=== PATIENT | female | born 1935 | race Caucasian/White ===

== ENCOUNTER 2016-12-22 23:45 | Inpatient (IN) | payer MEDICARE, OTHER ==
[~2016-12-22] VITALS: Ht 154.9 cm; Wt 85.0 kg
[2016-12-22] MEDS ORDERED: SOD CHLORIDE 0.9% 1,000 ML IV STA (23:50)
[2016-12-23] MEDS ORDERED: CELE100C PO (01:13)
[2016-12-23] MEDS ORDERED: MIRT15TA PO (01:13)
[2016-12-23] MEDS ORDERED: CALC-686 PO (01:13)
[2016-12-23] MEDS ORDERED: QUET100T PO (01:13)
[2016-12-23] MEDS ORDERED: CHOL200073 PO (01:13)
[2016-12-23] MEDS ORDERED: RIVA10TA PO (01:13)
[2016-12-23] MEDS ORDERED: ESOM40CA PO (01:13)
[2016-12-23 01:14] LABS: ADD SCAN DIFF NO
[2016-12-23 01:24] LABS: BASOPHIL # 0.1 10^3/ul (0.0-0.1); BASOPHILS % 0.4 % (0.0-2.0); EOSINOPHILS # 0.2 10^3/ul (0.0-0.5); EOSINOPHILS % 1.5 % (0.0-7.0); HEMATOCRIT 32.3 % (37.0-47.0); HEMOGLOBIN 9.4 g/dl (12.0-16.0); LYMPHOCYTES # 1.8 10^3/ul (0.8-2.9); LYMPHOCYTES % 14.4 % (15.0-51.0); MEAN CORPUSCULAR HEMOGLOBIN 21.2 pg (29.0-33.0); MEAN CORPUSCULAR HGB CONC 29.1 g/dl (32.0-37.0); MEAN CORPUSCULAR VOLUME 72.7 fl (82.0-101.0); MEAN PLATELET VOLUME 8.9 fl (7.4-10.4); MONOCYTE # 0.6 10^3/ul (0.3-0.9); MONOCYTES % 4.8 % (0.0-11.0); NEUTROPHIL # 9.8 10^3/ul (1.6-7.5); NEUTROPHILS % 78.5 % (39.0-77.0); PLATELET COUNT 454 10^3/UL (140-415); RED BLOOD COUNT 4.44 10^6/ul (4.20-5.40); WHITE BLOOD COUNT 12.5 10^3/ul (4.8-10.8)
[2016-12-23 01:31] LABS: INR 1.29; PROTIME 16.2 Sec (12.2-14.2); PT RATIO 1.3
[2016-12-23 01:32] LABS: PARTIAL THROMBOPLASTIN TIME 36.1 Sec (25.0-35.0)
[2016-12-23 01:34] LABS: ALBUMIN 4.2 g/dl (3.3-4.9); ALBUMIN/GLOBULIN RATIO 1.5; BILIRUBIN,INDIRECT 0.1 mg/dl (0-1.1); BILIRUBIN,TOTAL 0.1 mg/dl (0.2-1.3); CALCIUM 9.4 mg/dl (8.4-10.2); CREATININE 0.89 mg/dl (0.44-1.00); POTASSIUM 3.7 mmol/L (3.5-5.1)
[2016-12-23 02:13] LABS: UR BACTERIA MODERATE /HPF (NONE SEEN); UR RBC > 182 /HPF (0-5)
[2016-12-23 02:27] LABS: ADD UMIC YES; UR ASCORBIC ACID NEGATIVE (NEGATIVE); UR BILIRUBIN (Dip) NEGATIVE (NEGATIVE); UR BLOOD (Dip) 2+ mg/dL (NEGATIVE); UR CLARITY TURBID (CLEAR); UR COLOR RED (YELLOW); UR GLUCOSE (Dip) NEGATIVE (NEGATIVE); UR KETONES (Dip) NEGATIVE (NEGATIVE); UR LEUKOCYTE ESTERASE (Dip) TRACE Leu/ul (NEGATIVE); UR NITRITE (Dip) NEGATIVE (NEGATIVE); UR SPECIFIC GRAVITY (Dip) 1.019 (1.003-1.030); UR TOTAL PROTEIN (Dip) 2+ mg/dl (NEGATIVE); UR UROBILINOGEN (Dip) NEGATIVE (NEGATIVE)
[2016-12-23] MEDS ORDERED: ACETAMINOPHEN 500 MG TAB PO ONE (02:56)
[2016-12-23] MEDS ORDERED: CEFTRIAXONE 1 GM/50 ML (PMX) 50 ML IVPB ONE (03:00)
[2016-12-23 05:00] VITALS: BP 110/76; PULSE 77; RESP 18
[2016-12-23 05:23] VITALS: Ht 154.9 cm; Wt 85.0 kg
[2016-12-23] MEDS ORDERED: BARIUM SULF 2% 450 ML BTL (BERRY SMOOTHIE) PO ONE (05:30)
[2016-12-23] MEDS ORDERED: NACL 0.9% 3 ML SYG IV SCH (05:30)
[2016-12-23] MEDS: SOD CHLORIDE 0.9% 1,000 ML IV SCH ×2 (05:45→19:41)
[2016-12-23] MEDS ORDERED: PANTOPRAZOLE 40 MG INJ IV SCH (06:00)
[2016-12-23 07:30] VITALS: BP 110/77; RESP 16
[2016-12-23] MEDS ORDERED: IODIXANOL LOCM 100 ML BTL ONE (08:41)
[2016-12-23] MEDS ORDERED: SOD CHLORIDE 0.9% 100 ML ONE (08:41)
[2016-12-23 11:08] LABS: THYROID STIMULATING HORMONE 3.77 MIU/L (0.465-4.680)
[2016-12-23] MEDS: CHOLECALCIFEROL 2,000 UNIT CAP PO SCH (11:11)
[2016-12-23] MEDS: QUETIAPINE 100 MG TAB PO SCH ×2 (11:11→21:04)
--- NOTE | 2016-12-23 11:43 | RADRPT ---
PROCEDURE: CT Abdomen and Pelvis with contrast. CLINICAL INDICATION: Vaginal bleeding versus hematuria. TECHNIQUE: CT scan of the abdomen and pelvis with contrast was performed on a multi-detector high- resolution CT scanner. The patient was scanned following the uncomplicated intravenous administrati on of 100 cc of Visipaque 320. Coronal and sagittal reformatted images were obtained from the axial source images. Images were reviewed on a high-resolution PACS workstation. The total exam CTDI equa ls 19.93 mGy and the total exam DLP equals 1165.89 mGy-cm. One or more of the following dose reduction techniques were used: Automated exposure control. Adjustment of the mA and/or kV according to patient size. Use of iterative reconstruction technique. COMPARISON: None. FINDINGS: CT abdomen: The lung bases are remarkable for elevation of the left hemidiaphragm with basilar atelectasis. Ther e is trace left pleural effusion. There is mild right basilar atelectasis. The heart size is mildly large without pericardial thickening or effusion. The liver is normal in size and density without focal mass or intrahepatic biliary dilatation. The spleen is normal in size and homogeneous in density. The stomach is partially collapsed, but is sherry ssly unremarkable. The pancreas as visualized is normal. The gallbladder is absent. There is no e vidence for biliary dilatation. The adrenal glands are symmetric and normal. The kidneys are symme trically unremarkable as well. No renal calculus or obstructive uropathy or mass lesion is seen. The aorta is of normal caliber. Aortic vascular calcifications are present. There is no retroperit rae lymphadenopathy. The kings hepatis region is clear. There is moderate stool throughout the c olon. CT pelvis: The small bowel loops situated within the pelvis are unremarkable. The pelvic organs are normal. T he pelvic sidewalls and inguinal regions are clear. The sigmoid colon and rectum are remarkable for sigmoid diverticulosis. No mass, lymphadenopathy, or free fluid is seen. No acute inflammation is seen. The bladder is normal. The surrounding osseous structures are unremarkable. No osteolytic o r osteoblastic lesion is detected. There is moderate levoconvex scoliosis centered at L2-L3. There is chronic-appearing severe compression fracture of T11. Left hip ORIF changes are present. IMPRESSION: 1. No mass, lymphadenopathy, or focal acute inflammatory process is identified. 2. No urolithiasis. No hydronephrosis. 3. Moderate stool throughout the colon. Correlate with constipation. 4. Moderate hiatal hernia. 5. Bibasilar atelectasis and trace left pleural effusion. 6. Aortoiliac atherosclerosis. RPTAT: BB .Nancy Enrique MD, Date Time Electronically viewed and signed by .Nancy Enrique MD, on 12/23/2016 11:43 .O/
[2016-12-23 13:39] LABS: HEMATOCRIT 27.2 % (37.0-47.0)
[2016-12-23 14:03] VITALS: BP 101/53; RESP 18
[2016-12-23] MEDS: POLYETHYLENE GLYCOL 17 GM PACKET PO SCH (17:30)
--- NOTE | 2016-12-23 18:22 | HP ---
Date/Time of Note Date/Time of Note DATE: 12/23/16 TIME: 17:14 Assessment/Plan VTE Prophylaxis VTE Prophylaxis Intervention: SCD's VTE Contraindication Reason: bleeding Lines/Catheters IV Catheter Type (from Nrs): Peripheral IV Urinary Cath still in place: No Assessment/Plan Assessment/Plan 81 yo F with bloody diapers managed for : Gross Hematuria likely 2/2 UTI on Xarelto but r/o other causes UTI Obesity Chronic dementia Hx of DVT? PLAN: CT abd pelvis / abx / urology consult / cultures LE dopplers to eval DVT Hold Xarelto for now Supportive care Obtain further info from family Serial lab for anemia Further interventions per clinical course. Prophylaxis: PPI / SCds HPI/ROS Admit Date/Time Admit Date/Time Dec 23, 2016 at 03:29 Hx of Present Illness 81-year-old female who is unable to give me any history secondary to chronic dementia as well as language barrier, was brought in by her daughter because of history of blood in her urinary diapers, exact duration unknown. Preliminary workup consistent with his significant urinary tract infection. Patient admitted for treatment as well as further workup as well as possible urology review. ROS unable to obtain PMH/Family/Social Past Medical History * DVT * Obesity * bedridden * dementia Past Surgical History * appendectomy * cholecystectomy * sx L hip * Catract sx Social History Smoking Status: Unknown if ever smoked Exam/Review of Systems Vital Signs Vitals Vital Signs Date Time Temp Pulse Resp B/P Pulse Ox O2 Delivery O2 Flow Rate FiO2 12/23/16 14:03 98.1 89 18 101/53 95 12/23/16 05:00 Room Air Intake and Output 12/22/16 12/22/16 12/23/16 15:00 23:00 07:00 Intake Total 50 ml Balance 50 ml Exam Constitutional: alert, frail, other (obese) Head: normocephalic Eyes: PERRL Neck: supple Respiratory: clear to auscultation Cardiovascular: regular rate and rhythm Gastrointestinal: bowel sounds, non-tender, soft Neurological: lethargic Labs Result Diagram: 12/23/16 1306 12/23/16 0029 Medications Medications Current Medications Sodium Chloride 1,000 ml @ 70 mls/hr [id number] IV Last administered on t 05:45; Admin Dose 70 MLS/HR; Start 12/23/16 at 05:23 Ceftriaxone Sodium (Rocephin) 50 ml @ 100 mls/hr Q24H IVPB ; Start 12/24/16 at 03:00 Cholecalciferol (Vitamin D) 2,000 unit DAILY PO Last administered on 12/23/16 11:11; Admin Dose 2,000 UNIT; Start 12/23/16 at 09:00 Mirtazapine (Remeron) 15 mg HS PO ; Start 12/23/16 at 21:00 Quetiapine Fumarate (Seroquel) 100 mg BID PO Last administered on 12/23/16 11: 11; Admin Dose 100 MG; Start 12/23/16 at 09:[address] abd pelvis pending REECE LI Dec 23, 2016 17:27
[2016-12-23 18:36] LABS: HEMATOCRIT 26.9 % (37.0-47.0); HEMOGLOBIN 7.9 g/dl (12.0-16.0)
--- NOTE | 2016-12-23 19:04 | CONS ---
Date/Time of Note Date/Time of Note DATE: 12/23/16 TIME: 18:49 Assessment/Plan Assessment/Plan Chief Complaint/Hosp Course Gross hematuria most likely secondary to urinary tract infection however possibility of bladder tumor is always be considered I did straight cath on her, collected urine for UA, culture and sensitivity Patient was already started on antibiotic, will continue that Problems: Consultation Date/Type/Reason Admit Date/Time Dec 23, 2016 at 03:29 Date of Consultation: Dec 23, 2016 Type of Consultation: Urology Reason for Consultation Gross hematuria Referring Provider: REECE LI Hx of Present Illness 81-year-old female who lives with her son was brought in by her daughter because of gross hematuria that started yesterday. Patient has been on anticoagulant. Patient herself has dementia and not capable of giving any history. The daughter tells me that she has been bedridden since she had a fracture of her left hip about 3 years and a fracture of her right arm about 5 - 6 months earlier Subjective hx not possible: other (Patient has dementia) Constitutional: disoriented, no complaints Eyes: no complaints, other (History of surgery for left cataract) ENT: no complaints Respiratory: no complaints Cardiovascular: no complaints Gastrointestinal: No nausea, No vomiting Genitourinary: hematuria Musculoskeletal: no complaints Skin: no complaints Neurologic: confusion Endocrine: no complaints Lymphatic: no complaints Psychological: confusion, other (Dementia) Immunologic: no complaints Past Medical History Medical History: deep vein thrombosis (Left lower extremity deep vein thrombosis) Past Surgical History Past Surgical Hx: appendectomy, cholecystectomy, other (Surgery for left hip fracture and right upper extremity fracture, left cataract surgery) Social History Has 4 children, her daughter does not know if she had any miscarriages or abortions Alcohol Use: none Smoking Status: Unknown if ever smoked Drug Use: none Exam/Review of Systems Vital Signs Vitals Vital Signs Date Time Temp Pulse Resp B/P Pulse Ox O2 Delivery O2 Flow Rate FiO2 12/23/16 14:03 98.1 89 18 101/53 95 12/23/16 05:00 Room Air Intake and Output 12/22/16 12/22/16 12/23/16 15:00 23:00 07:00 Intake Total 50 ml Balance 50 ml Exam Constitutional: other (Poor cooperation because of dementia) Psych: confusion Head: normocephalic Eyes: nl conjunctiva ENMT: nl external ears & nose Neck: non-tender, supple Respiratory: normal air movement Cardiovascular: nl pulses Gastrointestinal: non-tender, soft, surgical scars Genitourinary - Female: other (Pelvic exam: no vaginal bleeding, no discharge and no mass palpable) Extremities: other (Swollen right lower extremity) Skin: nl turgor Lymph: nl lymph nodes Results Result Diagram: 12/23/16 1306 12/23/16 0029 Results 24 hrs Laboratory Tests Test 12/23/16 00:29 12/23/16 00:46 12/23/16 05:43 12/23/16 13:06 White Blood Count 12.5 H Red Blood Count 4.44 Hemoglobin 9.4 L 8.0 L Hematocrit 32.3 L 27.2 L Mean Corpuscular Volume 72.7 L Mean Corpuscular Hemoglobin 21.2 L Mean Corpuscular Hemoglobin Concent 29.1 L Red Cell Distribution Width 17.0 H Platelet Count 454 H Mean Platelet Volume 8.9 Neutrophils % 78.5 H Lymphocytes % 14.4 L Monocytes % 4.8 Eosinophils % 1.5 Basophils % 0.4 Nucleated Red Blood Cells % 0.0 Neutrophils # 9.8 H Lymphocytes # 1.8 Monocytes # 0.6 Eosinophils # 0.2 Basophils # 0.1 Nucleated Red Blood Cells # 0.0 Prothrombin Time 16.2 H Prothrombin Time Ratio 1.3 INR International Normalized Ratio 1.29 Activated Partial Thromboplast Time 36.1 H Sodium Level 132 L Potassium Level 3.7 Chloride Level 98 Carbon Dioxide Level 28 Anion Gap 10 Blood Urea Nitrogen 22 H Creatinine 0.89 Glucose Level 134 Calcium Level 9.4 Total Bilirubin 0.1 L Direct Bilirubin 0.00 Indirect Bilirubin 0.1 Aspartate Amino Transf (AST/SGOT) 20 Alanine Aminotransferase (ALT/SGPT) 21 Alkaline Phosphatase 60 Total Protein 7.0 Albumin 4.2 Globulin 2.80 Albumin/Globulin Ratio 1.50 Lipase 101 Urine Color RED Urine Clarity TURBID A Urine pH 5.0 Urine Specific [place] 1.019 Urine Ketones NEGATIVE Urine Nitrite NEGATIVE Urine Bilirubin NEGATIVE Urine Urobilinogen NEGATIVE Urine Leukocyte Esterase TRACE A Urine Microscopic RBC > 182 H Urine Microscopic WBC > 182 H Urine Bacteria MODERATE Urine Hemoglobin 2+ H Urine Glucose NEGATIVE Urine Total Protein 2+ H Osmolality 291 Thyroid Stimulating Hormone (TSH) 3.[address] scan of abdomen and pelvis: 1. No mass, lymphadenopathy, or focal acute inflammatory process is identified. 2. No urolithiasis. No hydronephrosis. 3. Moderate stool throughout the colon. Correlate with constipation. 4. Moderate hiatal hernia. 5. Bibasilar atelectasis and trace left pleural effusion. 6. Aortoiliac atherosclerosis. Medications Medications Current Medications Sodium Chloride 1,000 ml @ 70 mls/hr [id number] IV Last administered on 05:45; Admin Dose 70 MLS/HR; Start 12/23/16 at 05:23 Ceftriaxone Sodium (Rocephin) 50 ml @ 100 mls/hr Q24H IVPB ; Start 12/24/16 at 03:00 Cholecalciferol (Vitamin D) 2,000 unit DAILY PO Last administered on 12/23/16 11:11; Admin Dose 2,000 UNIT; Start 12/23/16 at 09:00 Mirtazapine (Remeron) 15 mg HS PO ; Start 12/23/16 at 21:00 Quetiapine Fumarate (Seroquel) 100 mg BID PO Last administered on 12/23/16 11: 11; Admin Dose 100 MG; Start 12/23/16 at 09:00 Polyethylene Glycol (Miralax) 17 gm DAILY PO ; Start 12/23/16 at 17:30 ARIE PRESLEY MD Dec 23, 2016 18:59
[2016-12-23 19:56] LABS: ADD UMIC YES; UR ASCORBIC ACID NEGATIVE (NEGATIVE); UR BILIRUBIN (Dip) NEGATIVE (NEGATIVE); UR BLOOD (Dip) 3+ mg/dL (NEGATIVE); UR CLARITY CLOUDY (CLEAR); UR COLOR YELLOW (YELLOW); UR GLUCOSE (Dip) NEGATIVE (NEGATIVE); UR KETONES (Dip) NEGATIVE (NEGATIVE); UR LEUKOCYTE ESTERASE (Dip) 3+ Leu/ul (NEGATIVE); UR NITRITE (Dip) NEGATIVE (NEGATIVE); UR RBC > 182 /HPF (0-5); UR SPECIFIC GRAVITY (Dip) 1.051 (1.003-1.030); UR TOTAL PROTEIN (Dip) 2+ mg/dl (NEGATIVE); UR UROBILINOGEN (Dip) 1+ mg/dL (NEGATIVE); UR WBC CLUMPS FEW /HPF (NONE SEEN)
[2016-12-23 20:54] VITALS: BP 110/57; RESP 18
[2016-12-23] MEDS: MIRTAZAPINE 15 MG TAB PO SCH (21:04)
[2016-12-24] MEDS: POTASSIUM CHLORIDE (SR) 8 MEQ CAP PO SCH ×3 (00:35→09:00)
[2016-12-24] MEDS: SOD CHLORIDE 0.9% 1,000 ML IV SCH ×2 (00:36→14:48)
[2016-12-24] MEDS: CEFTRIAXONE 1 GM/50 ML (PMX) 50 ML IVPB SCH (02:09)
[2016-12-24] MEDS ORDERED: FURO-110 PO (02:28)
[2016-12-24] MEDS ORDERED: POTA8CAP PO (02:28)
[2016-12-24 02:51] VITALS: BP 127/62; RESP 18
[2016-12-24] MEDS: PANTOPRAZOLE (EC) 40 MG TAB PO SCH ×2 (08:00→08:53)
[2016-12-24 08:16] VITALS: BP 138/62; RESP 16
[2016-12-24] MEDS: CHOLECALCIFEROL 2,000 UNIT CAP PO SCH (08:53)
[2016-12-24] MEDS: POLYETHYLENE GLYCOL 17 GM PACKET PO SCH ×2 (08:53→09:00)
[2016-12-24] MEDS: QUETIAPINE 100 MG TAB PO SCH ×2 (08:53→21:22)
--- NOTE | 2016-12-24 12:32 | PN ---
Date/Time of Note Date/Time of Note DATE: 12/24/16 TIME: 12:30 Assessment/Plan VTE Prophylaxis VTE Prophylaxis Intervention: contraindicated Lines/Catheters IV [facility]): Peripheral IV Urinary Cath still in place: No Assessment/Plan Chief Complaint/Hosp Course 1. Sepsis secondary to underlying urinary tract infection. Continue antimicrobials. No evidence of septic shock. 2. Gross hematuria. Most probably secondary to underlying UTI. Neurology following the patient. 3. Microcytic, hypochromic anemia. Pending iron panel. Will transfuse as needed. 4. Dementia. Continue frequent reorientation. 5. History of DVT. On a factor Xa inhibitors. This is on hold because of underlying anemia and gross hematuria. Repeat ultrasound of the bilateral lower extremities ordered. However, the patient refusing this. 6. Fluids, electrolytes, and nutrition. Regular diet. 7. DVT prophylaxis. Contraindicated. 8. Gastrointestinal prophylaxis. Proton pump inhibitors. 9. Plan. Continue antimicrobials. Await hematuria to be cleared. Case discussed with . Problems: Subjective 24 Hr Interval Summary Free Text/Dictation Patient very noncooperative. Refusing to be touched. Refusing medications. Exam/Review of Systems Vital Signs Vitals Vital Signs Date Time Temp Pulse Resp B/P Pulse Ox O2 Delivery O2 Flow Rate FiO2 12/24/16 08:16 97.6 72 16 138/62 99 12/23/16 05:00 Room Air Intake and Output 12/23/16 12/23/16 12/24/16 15:00 23:00 07:00 Intake Total 1600 ml 955 ml Balance 1600 ml 955 ml Exam Unable to do physical exam since the patient is refusing. Results Result Diagram: 12/23/16 1821 12/23/16 0029 Results 24 hrs Laboratory Tests Test 12/23/16 13:06 12/23/16 18:21 12/23/16 18:40 Hemoglobin 8.0 L 7.9 L Hematocrit 27.2 L 26.9 L Urine Color YELLOW Urine Clarity CLOUDY A Urine pH 6.0 Urine Specific [place] 1.051 H Urine Ketones NEGATIVE Urine Nitrite NEGATIVE Urine Bilirubin NEGATIVE Urine Urobilinogen 1+ H Urine Leukocyte Esterase 3+ H Urine Microscopic RBC > 182 H Urine Microscopic WBC 124 H Urine Hemoglobin 3+ H Urine Glucose NEGATIVE Urine Total Protein 2+ H Medications Medications Current Medications Sodium Chloride 1,000 ml @ 70 mls/hr [id number] IV Last administered on 00:36; Admin Dose 70 MLS/HR; Start 12/23/16 at 05:23 Ceftriaxone Sodium (Rocephin) 50 ml @ 100 mls/hr Q24H IVPB Last administered on 12/24/16 02:09; Admin Dose 100 MLS/HR; Start 12/24/16 at 03:00 Cholecalciferol (Vitamin D) 2,000 unit DAILY PO Last administered on 12/24/16 08:53; Admin Dose 2,000 UNIT; Start 12/23/16 at 09:00 Mirtazapine (Remeron) 15 mg HS PO Last administered on 12/23/16 21:04; Admin Dose 15 MG; Start 12/23/16 at 21:00 Quetiapine Fumarate (Seroquel) 100 mg BID PO Last administered on 12/24/16 08: 53; Admin Dose 100 MG; Start 12/23/16 at 09:00 Polyethylene Glycol (Miralax) 17 gm DAILY PO ; Start 12/23/16 at 17:30 Potassium Chloride (Micro-K) 8 meq DAILY PO Last administered on 12/24/16 00: 35; Admin Dose 8 MEQ; Start 12/23/16 at 23:00 ARIA VILLAVICENCIO NP Dec 24, 2016 12:31
[2016-12-24 14:33] VITALS: BP 122/66; RESP 16
[2016-12-24 15:08] LABS: ADD SCAN DIFF NO
[2016-12-24 15:11] LABS: ABNORMAL IP MESSAGE 1; BASOPHILS % 0.5 % (0.0-2.0); EOSINOPHILS # 0.3 10^3/ul (0.0-0.5); EOSINOPHILS % 4.8 % (0.0-7.0); HEMATOCRIT 26.3 % (37.0-47.0); HEMOGLOBIN 7.4 g/dl (12.0-16.0); LYMPHOCYTES # 1.5 10^3/ul (0.8-2.9); LYMPHOCYTES % 24.7 % (15.0-51.0); MEAN CORPUSCULAR HEMOGLOBIN 20.4 pg (29.0-33.0); MEAN CORPUSCULAR HGB CONC 28.1 g/dl (32.0-37.0); MEAN CORPUSCULAR VOLUME 72.5 fl (82.0-101.0); MONOCYTE # 0.5 10^3/ul (0.3-0.9); MONOCYTES % 7.6 % (0.0-11.0); NEUTROPHIL # 3.7 10^3/ul (1.6-7.5); NEUTROPHILS % 61.9 % (39.0-77.0); PLATELET COUNT 330 10^3/UL (140-415); RED BLOOD COUNT 3.63 10^6/ul (4.20-5.40); RED CELL DISTRIBUTION WIDTH 17.2 % (11.5-14.5)
[2016-12-24 15:28] LABS: IRON 15 ug/dl (35-150)
[2016-12-24 15:29] LABS: ALBUMIN 3.2 g/dl (3.3-4.9); ALBUMIN/GLOBULIN RATIO 1.33; CALCIUM 8.6 mg/dl (8.4-10.2); CREATININE 0.68 mg/dl (0.44-1.00); POTASSIUM 3.9 mmol/L (3.5-5.1); TOTAL PROTEIN 5.6 g/dl (6.1-8.1)
[2016-12-24 15:39] LABS: TOTAL IRON BINDING CAPACITY 303 ug/dl (241-421)
[2016-12-24] MEDS ORDERED: SOD CHLORIDE 0.9% 250 ML IV* ONE (16:44)
[2016-12-24] MEDS ORDERED: FUROSEMIDE 40 MG INJ IV SCH (17:00)
--- NOTE | 2016-12-24 19:48 | PN ---
Date/Time of Note Date/Time of Note DATE: 12/24/16 TIME: 19:41 Assessment/Plan VTE Prophylaxis VTE Prophylaxis Intervention: SCD's Lines/Catheters IV Catheter Type (from [facility]): Peripheral IV Urinary Cath still in place: No Assessment/Plan Chief Complaint/Hosp Course Gross hematuria most likely secondary to urinary tract infection however possibility of bladder tumor is always to be considered Patient is on antibiotic, will continue that. Urine culture did show 100,000 E. coli sensitive to all antibiotics except ampicillin and Bactrim Problems: Assessment/Plan Gross hematuria secondary to urinary tract infection and that has cleared since he was started on antibiotic Continue the ceftriaxone Subjective 24 Hr Interval Summary Subjective hx not possible: other (Patient has dementia) Constitutional: disoriented Eyes: no complaints ENT: no complaints Respiratory: no complaints Cardiovascular: No chest pain, No edema Gastrointestinal: No nausea, No vomiting Genitourinary: No hematuria Musculoskeletal: no complaints Skin: no complaints Neurologic: no complaints Endocrine: no complaints Lymphatic: no complaints Psychological: confusion, no complaints Immunologic: no complaints Exam/Review of Systems Vital Signs Vitals Vital Signs Date Time Temp Pulse Resp B/P Pulse Ox O2 Delivery O2 Flow Rate FiO2 12/24/16 14:33 97.8 94 16 122/66 94 12/23/16 05:00 Room Air Intake and Output 12/23/16 12/23/16 12/24/16 15:00 23:00 07:00 Intake Total 1600 ml 955 ml Balance 1600 ml 955 ml Exam Constitutional: other (Patient has dementia and not cooperative) Psych: confusion Head: normocephalic Eyes: nl conjunctiva ENMT: nl external ears & nose Neck: supple Respiratory: normal air movement Cardiovascular: regular rate and rhythm Gastrointestinal: non-tender, soft Genitourinary - Female: other (Bladder is not distended) Musculoskeletal: nl extremities to inspection Extremities: No calf tenderness, No edema Skin: nl turgor Lymph: nl lymph nodes Results Result Diagram: 12/24/16 1420 12/24/16 1420 Results 24 hrs Laboratory Tests Test 12/24/16 14:20 White Blood Count 6.0 # Red Blood Count 3.63 L Hemoglobin 7.4 L Hematocrit 26.3 L Mean Corpuscular Volume 72.5 L Mean Corpuscular Hemoglobin 20.4 L Mean Corpuscular Hemoglobin Concent 28.1 L Red Cell Distribution Width 17.2 H Platelet Count 330 # Mean Platelet Volume 9.0 Neutrophils % 61.9 Lymphocytes % 24.7 Monocytes % 7.6 Eosinophils % 4.8 Basophils % 0.5 Nucleated Red Blood Cells % 0.0 Neutrophils # 3.7 Lymphocytes # 1.5 Monocytes # 0.5 Eosinophils # 0.3 Basophils # 0.0 Nucleated Red Blood Cells # 0.0 Sodium Level 138 Potassium Level 3.9 Chloride Level 109 # Carbon Dioxide Level 25 Anion Gap 8 Blood Urea Nitrogen 11 # Creatinine 0.68 Glucose Level 106 Hemoglobin A1c 5.3 Calcium Level 8.6 Iron Level 15 L Total Iron Binding Capacity 303 Percent Iron Saturation 5 L Total Bilirubin 0.0 L Direct Bilirubin 0.00 Indirect Bilirubin 0.0 Aspartate Amino Transf (AST/SGOT) 15 Alanine Aminotransferase (ALT/SGPT) 22 Alkaline Phosphatase 45 Total Protein 5.6 #L Albumin 3.2 #L Globulin 2.40 Albumin/Globulin Ratio 1.33 Medications Medications Current Medications Sodium Chloride 1,000 ml @ 70 mls/hr [id number] IV Last administered on 14:48; Admin Dose 70 MLS/HR; Start 12/23/16 at 05:23 Ceftriaxone Sodium (Rocephin) 50 ml @ 100 mls/hr Q24H IVPB Last administered on 12/24/16 02:09; Admin Dose 100 MLS/HR; Start 12/24/16 at 03:00 Cholecalciferol (Vitamin D) 2,000 unit DAILY PO Last administered on 12/24/16 08:53; Admin Dose 2,000 UNIT; Start 12/23/16 at 09:00 Mirtazapine (Remeron) 15 mg HS PO Last administered on 12/23/16 21:04; Admin Dose 15 MG; Start 12/23/16 at 21:00 Quetiapine Fumarate (Seroquel) 100 mg BID PO Last administered on 12/24/16 08: 53; Admin Dose 100 MG; Start 12/23/16 at 09:00 Polyethylene Glycol (Miralax) 17 gm DAILY PO ; Start 12/23/16 at 17:30 Potassium Chloride (Micro-K) 8 meq DAILY PO Last administered on 12/24/16 00: 35; Admin Dose 8 MEQ; Start 12/23/16 at 23:00 Furosemide (Lasix) 10 mg ONCE IV ; Start 12/24/16 at 17:00; Stop 12/25/16 at 16: 59 ARIE PRESLEY MD Dec 24, 2016 19:48
[2016-12-24] MEDS: MIRTAZAPINE 15 MG TAB PO SCH (20:24)
[2016-12-24 20:34] VITALS: BP 117/61; RESP 19
[2016-12-25 02:54] VITALS: BP 111/63; RESP 19
[2016-12-25] MEDS: CEFTRIAXONE 1 GM/50 ML (PMX) 50 ML IVPB SCH (03:00)
[2016-12-25 08:20] VITALS: BP 113/49; RESP 16
[2016-12-25] MEDS: CHOLECALCIFEROL 2,000 UNIT CAP PO SCH (08:48)
[2016-12-25] MEDS: PANTOPRAZOLE (EC) 40 MG TAB PO SCH (08:48)
[2016-12-25] MEDS: POTASSIUM CHLORIDE (SR) 8 MEQ CAP PO SCH (08:48)
[2016-12-25] MEDS: QUETIAPINE 100 MG TAB PO SCH ×2 (08:49→20:33)
[2016-12-25] MEDS: POLYETHYLENE GLYCOL 17 GM PACKET PO SCH (08:49)
[2016-12-25] MEDS ORDERED: ACETAMINOPHEN 325 MG TAB PO PRN (13:30)
[2016-12-25 14:00] VITALS: BP 118/63; RESP 17
[2016-12-25] MEDS: SOD CHLORIDE 0.9% 1,000 ML IV SCH (14:28)
--- NOTE | 2016-12-25 14:59 | PN ---
Date/Time of Note Date/Time of Note DATE: 12/25/16 TIME: 14:53 Assessment/Plan VTE Prophylaxis VTE Prophylaxis Intervention: SCD's Lines/Catheters IV Catheter Type (from Nrs): Peripheral IV Urinary Cath still in place: No Assessment/Plan Assessment/Plan 1. Urinary tract infection, on Rocephin 2. Sepsis secondary to underlying urinary tract infection. Continue antimicrobials. No evidence of septic shock. 2. Gross hematuria. Most probably secondary to underlying UTI. improving on antibiotics. 3. Microcytic, hypochromic anemia. s/p 1 unit PRBC on 12/25/2016, follow up with CBC 4. Dementia. Continue frequent reorientation. 5. History of DVT. On a factor X inhibitors. This is on hold because of underlying anemia and gross hematuria. Subjective 24 Hr Interval Summary Free Text/Dictation agitated, severely demented Exam/Review of Systems Vital Signs Vitals Vital Signs Date Time Temp Pulse Resp B/P Pulse Ox O2 Delivery O2 Flow Rate FiO2 12/25/16 14:00 97.4 85 17 118/63 97 12/23/16 05:00 Room Air Intake and Output 12/24/16 12/24/16 12/25/16 15:00 23:00 07:00 Intake Total 380 ml 150 ml Balance 380 ml 150 ml Exam Constitutional: alert, distress Head: atraumatic, normocephalic Eyes: EOMI, PERRL, nl conjunctiva, nl lids ENMT: nl external ears & nose, nl lips & teeth, nl nasal mucosa & septum Neck: supple Respiratory: clear to auscultation, normal air movement, No congested cough, No crackles/rales, No diminished breath sounds, No intercostal retraction, No labored breathing, No other, No respirations, No tactile fremitus, No wheezing Cardiovascular: nl pulses, regular rate and rhythm, No S3, No S4, No bruits, No diastolic murmur, No edema, No gallop, No irregular rhythm, No jugular venous distention (JVD), No murmurs/extra sounds, No other, No rub, No systolic murmur Gastrointestinal: nl liver, spleen, non-tender, soft Musculoskeletal: nl extremities to inspection Extremities: normal pulses, No calf tenderness, No clubbing, No cyanosis, No edema, No other, No palpable cord, No pitting pedal edema, No tenderness Neurological: [employer] OVER HAND II-XII intact, confused Skin: nl turgor Lymph: nl lymph nodes Results Result Diagram: 12/24/16 1420 12/24/16 1420 Medications Medications Current Medications Sodium Chloride 1,000 ml @ 70 mls/hr [id number] IV Last administered on 14:28; Admin Dose 70 MLS/HR; Start 12/23/16 at 05:23 Ceftriaxone Sodium (Rocephin) 50 ml @ 100 mls/hr Q24H IVPB Last administered on 12/24/16 02:09; Admin Dose 100 MLS/HR; Start 12/24/16 at 03:00 Cholecalciferol (Vitamin D) 2,000 unit DAILY PO Last administered on 12/25/16 08:48; Admin Dose 2,000 UNIT; Start 12/23/16 at 09:00 Mirtazapine (Remeron) 15 mg HS PO Last administered on 12/24/16 20:24; Admin Dose 15 MG; Start 12/23/16 at 21:00 Quetiapine Fumarate (Seroquel) 100 mg BID PO Last administered on 12/25/16 08: 49; Admin Dose 100 MG; Start 12/23/16 at 09:00 Polyethylene Glycol (Miralax) 17 gm DAILY PO Last administered on 12/25/16 08: 49; Admin Dose 17 GM; Start 12/23/16 at 17:30 Potassium Chloride (Micro-K) 8 meq DAILY PO Last administered on 12/25/16 08: 48; Admin Dose 8 MEQ; Start 12/23/16 at 23:00 Furosemide (Lasix) 10 mg ONCE IV Last administered on 12/25/16 14:28; Admin Dose 10 MG; Start 12/24/16 at 17:00; Stop 12/25/16 at 16:59 Acetaminophen (Tylenol Tab) 650 mg Q4H PRN PO PAIN AND OR ELEVATED TEMP Last administered on 12/25/16 13:43; Admin Dose 650 MG; Start 12/25/16 at 13:30 ALICE WILLIAM MD Dec 25, 2016 14:59
[2016-12-25] MEDS ORDERED: HYDROCODONE/APAP (5/325) TAB GTB PRN (15:00)
[2016-12-25 16:51] LABS: ADD SCAN DIFF NO
[2016-12-25 16:53] LABS: BASOPHILS % 0.3 % (0.0-2.0); EOSINOPHILS # 0.4 10^3/ul (0.0-0.5); EOSINOPHILS % 5.5 % (0.0-7.0); HEMATOCRIT 30.2 % (37.0-47.0); HEMOGLOBIN 9.3 g/dl (12.0-16.0); LYMPHOCYTES # 1.4 10^3/ul (0.8-2.9); LYMPHOCYTES % 21.7 % (15.0-51.0); MEAN CORPUSCULAR HEMOGLOBIN 22.9 pg (29.0-33.0); MEAN CORPUSCULAR HGB CONC 30.8 g/dl (32.0-37.0); MEAN CORPUSCULAR VOLUME 74.2 fl (82.0-101.0); MEAN PLATELET VOLUME 8.8 fl (7.4-10.4); MONOCYTE # 0.4 10^3/ul (0.3-0.9); MONOCYTES % 6.3 % (0.0-11.0); NEUTROPHIL # 4.3 10^3/ul (1.6-7.5); NEUTROPHILS % 65.7 % (39.0-77.0); PLATELET COUNT 345 10^3/UL (140-415); RED BLOOD COUNT 4.07 10^6/ul (4.20-5.40); RED CELL DISTRIBUTION WIDTH 19.5 % (11.5-14.5); WHITE BLOOD COUNT 6.5 10^3/ul (4.8-10.8)
[2016-12-25 17:21] LABS: CHOL/HDL RATIO 5.1 RATIO; PHOSPHORUS 3.5 mg/dl (2.5-4.9)
[2016-12-25 18:05] LABS: THYROID STIMULATING HORMONE 4.17 MIU/L (0.465-4.680)
--- NOTE | 2016-12-25 18:08 | PN ---
Date/Time of Note Date/Time of Note DATE: 12/25/16 TIME: 18:00 Assessment/Plan VTE Prophylaxis VTE Prophylaxis Intervention: SCD's Lines/Catheters IV C[facility] Type ([facility] Peripheral IV Urinary Cath still in place: No Assessment/Plan Chief Complaint/Hosp Course Gross hematuria most likely secondary to urinary tract infection however possibility of bladder tumor is always to be considered Patient is on antibiotic, will continue that. Urine culture did show 100,000 E. coli sensitive to all antibiotics except ampicillin and Bactrim Problems: Assessment/Plan Urinary tract infection and hematuria most likely secondary to the UTI. Continue the antibiotic. Subjective 24 Hr Interval Summary Free Text/Dictation Patient has dementia, does not express any discomfort or pain Constitutional: disoriented, no complaints Eyes: no complaints ENT: no complaints Respiratory: no complaints Cardiovascular: no complaints, No edema Gastrointestinal: no complaints, No nausea, No vomiting Genitourinary: No hematuria Musculoskeletal: no complaints Skin: no complaints Neurologic: confusion, no complaints Endocrine: no complaints Psychological: confusion Immunologic: no complaints Exam/Review of Systems Vital Signs Vitals Vital Signs Date Time Temp Pulse Resp B/P Pulse Ox O2 Delivery O2 Flow Rate FiO2 12/25/16 14:00 97.4 85 17 118/63 97 12/23/16 05:00 Room Air Intake and Output 12/24/16 12/24/16 12/25/16 15:00 23:00 07:00 Intake Total 380 ml 150 ml Balance 380 ml 150 ml Exam Constitutional: other (Awake but confused and disoriented) Psych: confusion Head: atraumatic Eyes: nl conjunctiva ENMT: nl external ears & nose Neck: supple Respiratory: normal air movement Cardiovascular: regular rate and rhythm Gastrointestinal: non-tender, soft Genitourinary - Female: other (No suprapubic tenderness) Musculoskeletal: nl extremities to inspection, other (has SCD on the right lower extremity and not on the left since she has had DVT on the left before) Extremities: No edema, No pitting pedal edema, No tenderness Skin: nl turgor Lymph: nl lymph nodes Results Result Diagram: 12/25/16 1602 12/24/16 1420 Results 24 hrs Laboratory Tests Test 12/25/16 16:02 White Blood Count 6.5 Red Blood Count 4.07 L Hemoglobin 9.3 #L Hematocrit 30.2 L Mean Corpuscular Volume 74.2 L Mean Corpuscular Hemoglobin 22.9 L Mean Corpuscular Hemoglobin Concent 30.8 L Red Cell Distribution Width 19.5 H Platelet Count 345 Mean Platelet Volume 8.8 Neutrophils % 65.7 Lymphocytes % 21.7 Monocytes % 6.3 Eosinophils % 5.5 Basophils % 0.3 Nucleated Red Blood Cells % 0.0 Neutrophils # 4.3 Lymphocytes # 1.4 Monocytes # 0.4 Eosinophils # 0.4 Basophils # 0.0 Nucleated Red Blood Cells # 0.0 Phosphorus Level 3.5 Magnesium Level 2.0 Triglycerides Level 99 Cholesterol Level 159 LDL Cholesterol, Calculated 108 HDL Cholesterol 31 L Cholesterol/HDL Ratio 5.1 Thyroid Stimulating Hormone (TSH) Pending Medications Medications Current Medications Sodium Chloride 1,000 ml @ 70 mls/hr [id number] IV Last administered on 14:28; Admin Dose 70 MLS/HR; Start 12/23/16 at 05:23 Ceftriaxone Sodium (Rocephin) 50 ml @ 100 mls/hr Q24H IVPB Last administered on 12/24/16 02:09; Admin Dose 100 MLS/HR; Start 12/24/16 at 03:00 Cholecalciferol (Vitamin D) 2,000 unit DAILY PO Last administered on 12/25/16 08:48; Admin Dose 2,000 UNIT; Start 12/23/16 at 09:00 Mirtazapine (Remeron) 15 mg HS PO Last administered on 12/24/16 20:24; Admin Dose 15 MG; Start 12/23/16 at 21:00 Quetiapine Fumarate (Seroquel) 100 mg BID PO Last administered on 12/25/16 08: 49; Admin Dose 100 MG; Start 12/23/16 at 09:00 Polyethylene Glycol (Miralax) 17 gm DAILY PO Last administered on 12/25/16 08: 49; Admin Dose 17 GM; Start 12/23/16 at 17:30 Potassium Chloride (Micro-K) 8 meq DAILY PO Last administered on 12/25/16 08: 48; Admin Dose 8 MEQ; Start 12/23/16 at 23:00 Acetaminophen (Tylenol Tab) 650 mg Q4H PRN PO PAIN AND OR ELEVATED TEMP Last administered on 12/25/16 13:43; Admin Dose 650 MG; Start 12/25/16 at 13:30 Acetaminophen/ Hydrocodone Bitart ([place] (5/325)) 1 tab Q4H PRN GTB pain; Start 12/25/16 at 15:00 ARIE PRESLEY MD Dec 25, 2016 18:08
[2016-12-25 18:50] LABS: ALBUMIN 3.1 g/dl (3.3-4.9); ALBUMIN/GLOBULIN RATIO 1.4; BILIRUBIN,INDIRECT 0.2 mg/dl (0-1.1); BILIRUBIN,TOTAL 0.2 mg/dl (0.2-1.3); CREATININE 0.63 mg/dl (0.44-1.00); POTASSIUM 4.4 mmol/L (3.5-5.1); TOTAL PROTEIN 5.3 g/dl (6.1-8.1)
[2016-12-25 20:00] VITALS: BP 133/69; RESP 22
[2016-12-25] MEDS: MIRTAZAPINE 15 MG TAB PO SCH (20:15)
[2016-12-26] MEDS: CEFTRIAXONE 1 GM/50 ML (PMX) 50 ML IVPB SCH (03:07)
[2016-12-26] MEDS: SOD CHLORIDE 0.9% 1,000 ML IV SCH ×3 (06:07→20:32)
[2016-12-26] MEDS: QUETIAPINE 100 MG TAB PO SCH ×2 (08:58→21:11)
[2016-12-26] MEDS: PANTOPRAZOLE (EC) 40 MG TAB PO SCH (08:58)
[2016-12-26] MEDS: POLYETHYLENE GLYCOL 17 GM PACKET PO SCH (08:58)
[2016-12-26] MEDS: CHOLECALCIFEROL 2,000 UNIT CAP PO SCH (08:58)
[2016-12-26] MEDS: POTASSIUM CHLORIDE (SR) 8 MEQ CAP PO SCH (08:58)
[2016-12-26 11:42] LABS: ADD SCAN DIFF NO
[2016-12-26 11:47] LABS: BASOPHILS % 0.4 % (0.0-2.0); EOSINOPHILS # 0.4 10^3/ul (0.0-0.5); EOSINOPHILS % 6.8 % (0.0-7.0); HEMATOCRIT 32.2 % (37.0-47.0); HEMOGLOBIN 9.7 g/dl (12.0-16.0); LYMPHOCYTES # 1.4 10^3/ul (0.8-2.9); LYMPHOCYTES % 24.7 % (15.0-51.0); MEAN CORPUSCULAR HEMOGLOBIN 22.7 pg (29.0-33.0); MEAN CORPUSCULAR HGB CONC 30.1 g/dl (32.0-37.0); MEAN CORPUSCULAR VOLUME 75.2 fl (82.0-101.0); MEAN PLATELET VOLUME 8.5 fl (7.4-10.4); MONOCYTE # 0.4 10^3/ul (0.3-0.9); NEUTROPHIL # 3.4 10^3/ul (1.6-7.5); NEUTROPHILS % 60.6 % (39.0-77.0); PLATELET COUNT 318 10^3/UL (140-415); RED BLOOD COUNT 4.28 10^6/ul (4.20-5.40); RED CELL DISTRIBUTION WIDTH 19.7 % (11.5-14.5); WHITE BLOOD COUNT 5.6 10^3/ul (4.8-10.8)
[2016-12-26 12:15] LABS: CALCIUM 8.9 mg/dl (8.4-10.2); CREATININE 0.68 mg/dl (0.44-1.00); POTASSIUM 4.3 mmol/L (3.5-5.1)
--- NOTE | 2016-12-26 13:30 | PN ---
Date/Time of Note Date/Time of Note DATE: 12/26/16 TIME: 13:28 Assessment/Plan VTE Prophylaxis VTE Prophylaxis Intervention: heparin Lines/Catheters IV Catheter Type (from [facility]): Peripheral IV Urinary Cath still in place: No Assessment/Plan Problems: (1) Organic brain syndrome Status: Chronic Comment: Patient's level of interaction with the outside world has its limitations. Certainly this should be addressed by the durable burns of ribbon cleaner for the patient regarding long-term plans. At this point in time there is no immediacy (2) E. coli UTI (urinary tract infection) Status: Acute Comment: Responding nicely antibiotics discharge planning (3) Iron deficiency anemia Status: Chronic Comment: Replace this parenterally as patient had issues with constipation this will be faster more fish and less likely to cause complications Qualifiers: Iron deficiency anemia type: unspecified iron deficiency Qualified Code: D50.9 - Iron deficiency anemia, unspecified iron deficiency anemia type (4) Obesity (BMI 30-39.9) Status: Chronic Comment: Calorie restriction diet (5) Obstipation Status: Acute Comment: Treated successfully Subjective 24 Hr Interval Summary Free Text/Dictation Patient sleeping in bed arouses. [place] speaking Exam/Review of Systems Vital Signs Vitals Vital Signs Date Time Temp Pulse Resp B/P Pulse Ox O2 Delivery O2 Flow Rate FiO2 12/25/16 20:00 98.9 82 22 133/69 96 12/23/16 05:00 Room Air Intake and Output 12/25/16 12/25/16 12/26/16 15:00 23:00 07:00 Intake Total 830 ml 890 ml Balance 830 ml 890 ml Exam Arousable Neck: non-tender, supple Respiratory: clear to auscultation, normal air movement Cardiovascular: nl pulses, regular rate and rhythm Gastrointestinal: nl liver, spleen, non-tender, soft Extremities: normal pulses Results Result Diagram: 12/26/16 1128 12/26/16 1128 Results 24 hrs Laboratory Tests Test 12/25/16 16:02 12/26/16 05:57 12/26/16 08:06 12/26/16 11:28 White Blood Count 6.5 5.6 Red Blood Count 4.07 L 4.28 Hemoglobin 9.3 #L 9.7 L Hematocrit 30.2 L 32.2 L Mean Corpuscular Volume 74.2 L 75.2 L Mean Corpuscular Hemoglobin 22.9 L 22.7 L Mean Corpuscular Hemoglobin Concent 30.8 L 30.1 L Red Cell Distribution Width 19.5 H 19.7 H Platelet Count 345 318 Mean Platelet Volume 8.8 8.5 Neutrophils % 65.7 60.6 Lymphocytes % 21.7 24.7 Monocytes % 6.3 7.0 Eosinophils % 5.5 6.8 Basophils % 0.3 0.4 Nucleated Red Blood Cells % 0.0 0.0 Neutrophils # 4.3 3.4 Lymphocytes # 1.4 1.4 Monocytes # 0.4 0.4 Eosinophils # 0.4 0.4 Basophils # 0.0 0.0 Nucleated Red Blood Cells # 0.0 0.0 Sodium Level 139 142 Potassium Level 4.4 4.3 Chloride Level 105 107 Carbon Dioxide Level 24 24 Anion Gap 14 15 Blood Urea Nitrogen 12 10 Creatinine 0.63 0.68 Glucose Level 88 90 Calcium Level 9.0 8.9 Phosphorus Level 3.5 Magnesium Level 2.0 Total Bilirubin 0.2 Direct Bilirubin 0.00 Indirect Bilirubin 0.2 Aspartate Amino Transf (AST/SGOT) 19 Alanine Aminotransferase (ALT/SGPT) 23 Alkaline Phosphatase 50 Total Protein 5.3 L Albumin 3.1 L Globulin 2.20 Albumin/Globulin Ratio 1.40 Triglycerides Level 99 Cholesterol Level 159 LDL Cholesterol, Calculated 108 HDL Cholesterol 31 L Cholesterol/HDL Ratio 5.1 Thyroid Stimulating Hormone (TSH) 4.170 Free Thyroxine 1.00 Lab Scanned Report BLOOD TRANSFUSION Bedside Glucose 75 Medications Medications Current Medications Sodium Chloride 1,000 ml @ 70 mls/hr [id number] IV Last administered on 06:07; Admin Dose 70 MLS/HR; Start 12/23/16 at 05:23 Ceftriaxone Sodium (Rocephin) 50 ml @ 100 mls/hr Q24H IVPB Last administered on 12/26/16 03:07; Admin Dose 100 MLS/HR; Start 12/24/16 at 03:00 Cholecalciferol (Vitamin D) 2,000 unit DAILY PO Last administered on 12/26/16 08:58; Admin Dose 2,000 UNIT; Start 12/23/16 at 09:00 Mirtazapine (Remeron) 15 mg HS PO Last administered on 12/25/16 20:15; Admin Dose 15 MG; Start 12/23/16 at 21:00 Quetiapine Fumarate (Seroquel) 100 mg BID PO Last administered on 12/26/16 08: 58; Admin Dose 100 MG; Start 12/23/16 at 09:00 Polyethylene Glycol (Miralax) 17 gm DAILY PO Last administered on 12/26/16 08: 58; Admin Dose 17 GM; Start 12/23/16 at 17:30 Potassium Chloride (Micro-K) 8 meq DAILY PO Last administered on 12/26/16 08: 58; Admin Dose 8 MEQ; Start 12/23/16 at 23:00 Acetaminophen (Tylenol Tab) 650 mg Q4H PRN PO PAIN AND OR ELEVATED TEMP Last administered on 12/25/16 13:43; Admin Dose 650 MG; Start 12/25/16 at 13:30 Acetaminophen/ Hydrocodone Bitart ([place] (5/325)) 1 tab Q4H PRN GTB pain Last administered on 12/25/16 21:18; Admin Dose 1 TAB; Start 12/25/16 at 15:00 TAMIKO CLEARY MD Dec 26, 2016 13:30
--- NOTE | 2016-12-26 15:24 | PN ---
Date/Time of Note Date/Time of Note DATE: 12/26/16 TIME: 15:19 Assessment/Plan VTE Prophylaxis VTE Prophylaxis Intervention: SCD's Lines/Catheters [facility] Type ([facility] Peripheral IV Urinary Cath still in place: No Assessment/Plan Chief Complaint/Hosp Course Gross hematuria that has cleared, patient had E. coli urinary tract infection and seems to be responding well to the antibiotic. Continue present treatment Problems: Subjective 24 Hr Interval Summary Subjective hx not possible: other (Patient has dementia) Constitutional: No febrile Eyes: no complaints ENT: no complaints Respiratory: no complaints Cardiovascular: No edema Gastrointestinal: No nausea, No vomiting Genitourinary: No bleeding Musculoskeletal: no complaints Skin: no complaints Neurologic: confusion Psychological: confusion Exam/Review of Systems Vital Signs Vitals Vital Signs Date Time Temp Pulse Resp B/P Pulse Ox O2 Delivery O2 Flow Rate FiO2 12/25/16 20:00 98.9 82 22 133/69 96 12/23/16 05:00 Room Air Intake and Output 12/25/16 12/25/16 12/26/16 15:00 23:00 07:00 Intake Total 830 ml 890 ml Balance 830 ml 890 ml Exam Psych: confusion Head: normocephalic Eyes: nl conjunctiva ENMT: nl external ears & nose Neck: supple Respiratory: normal air movement Cardiovascular: No edema Gastrointestinal: soft Genitourinary - Female: other (No hematuria) Musculoskeletal: nl extremities to inspection Extremities: No calf tenderness, No edema Skin: nl turgor Results Result Diagram: 12/26/16 1128 12/26/16 1128 Results 24 hrs Laboratory Tests Test 12/25/16 16:02 12/26/16 05:57 12/26/16 08:06 12/26/16 11:28 White Blood Count 6.5 5.6 Red Blood Count 4.07 L 4.28 Hemoglobin 9.3 #L 9.7 L Hematocrit 30.2 L 32.2 L Mean Corpuscular Volume 74.2 L 75.2 L Mean Corpuscular Hemoglobin 22.9 L 22.7 L Mean Corpuscular Hemoglobin Concent 30.8 L 30.1 L Red Cell Distribution Width 19.5 H 19.7 H Platelet Count 345 318 Mean Platelet Volume 8.8 8.5 Neutrophils % 65.7 60.6 Lymphocytes % 21.7 24.7 Monocytes % 6.3 7.0 Eosinophils % 5.5 6.8 Basophils % 0.3 0.4 Nucleated Red Blood Cells % 0.0 0.0 Neutrophils # 4.3 3.4 Lymphocytes # 1.4 1.4 Monocytes # 0.4 0.4 Eosinophils # 0.4 0.4 Basophils # 0.0 0.0 Nucleated Red Blood Cells # 0.0 0.0 Sodium Level 139 142 Potassium Level 4.4 4.3 Chloride Level 105 107 Carbon Dioxide Level 24 24 Anion Gap 14 15 Blood Urea Nitrogen 12 10 Creatinine 0.63 0.68 Glucose Level 88 90 Calcium Level 9.0 8.9 Phosphorus Level 3.5 Magnesium Level 2.0 Total Bilirubin 0.2 Direct Bilirubin 0.00 Indirect Bilirubin 0.2 Aspartate Amino Transf (AST/SGOT) 19 Alanine Aminotransferase (ALT/SGPT) 23 Alkaline Phosphatase 50 Total Protein 5.3 L Albumin 3.1 L Globulin 2.20 Albumin/Globulin Ratio 1.40 Triglycerides Level 99 Cholesterol Level 159 LDL Cholesterol, Calculated 108 HDL Cholesterol 31 L Cholesterol/HDL Ratio 5.1 Thyroid Stimulating Hormone (TSH) 4.170 Free Thyroxine 1.00 Lab Scanned Report BLOOD TRANSFUSION Bedside Glucose 75 Medications Medications Current Medications Sodium Chloride 1,000 ml @ 70 mls/hr [id number] IV Last administered on 06:07; Admin Dose 70 MLS/HR; Start 12/23/16 at 05:23 Ceftriaxone Sodium (Rocephin) 50 ml @ 100 mls/hr Q24H IVPB Last administered on 12/26/16 03:07; Admin Dose 100 MLS/HR; Start 12/24/16 at 03:00 Cholecalciferol (Vitamin D) 2,000 unit DAILY PO Last administered on 12/26/16 08:58; Admin Dose 2,000 UNIT; Start 12/23/16 at 09:00 Mirtazapine (Remeron) 15 mg HS PO Last administered on 12/25/16 20:15; Admin Dose 15 MG; Start 12/23/16 at 21:00 Quetiapine Fumarate (Seroquel) 100 mg BID PO Last administered on 12/26/16 08: 58; Admin Dose 100 MG; Start 12/23/16 at 09:00 Polyethylene Glycol (Miralax) 17 gm DAILY PO Last administered on 12/26/16 08: 58; Admin Dose 17 GM; Start 12/23/16 at 17:30 Potassium Chloride (Micro-K) 8 meq DAILY PO Last administered on 12/26/16 08: 58; Admin Dose 8 MEQ; Start 12/23/16 at 23:00 Acetaminophen (Tylenol Tab) 650 mg Q4H PRN PO PAIN AND OR ELEVATED TEMP Last administered on 12/25/16 13:43; Admin Dose 650 MG; Start 12/25/16 at 13:30 Acetaminophen/ Hydrocodone Bitart 1 tab 1 tab Q4H PRN GTB pain Last administered on 12/25/16 21:18; Admin Dose 1 TAB; Start 12/25/16 at 15:00 Ferric Sodium Gluconate Complex/ Sodium Chloride (Ferrlecit/NS) 110 ml @ 100 mls/hr Q24H IVPB ; Start 12/26/16 at 15:30; Stop 12/28/16 at 16:35 ARIE PRESLEY MD Dec 26, 2016 15:24
[2016-12-26] MEDS ORDERED: SOD FERRIC GLUC COMPLX 125 MG in SOD CHLORIDE 0.9% 100 ML IVPB SCH (15:30)
[2016-12-26] MEDS: MIRTAZAPINE 15 MG TAB PO SCH (20:31)
[2016-12-26 20:40] VITALS: BP 130/56; RESP 18
[2016-12-27] MEDS: CEFTRIAXONE 1 GM/50 ML (PMX) 50 ML IVPB SCH (02:27)
[2016-12-27 02:40] VITALS: BP 134/61; RESP 18
[2016-12-27 08:11] VITALS: BP 119/55; RESP 20
[2016-12-27] MEDS: PANTOPRAZOLE (EC) 40 MG TAB PO SCH (08:48)
[2016-12-27] MEDS: CHOLECALCIFEROL 2,000 UNIT CAP PO SCH (08:48)
[2016-12-27] MEDS: POLYETHYLENE GLYCOL 17 GM PACKET PO SCH (08:48)
[2016-12-27] MEDS: POTASSIUM CHLORIDE (SR) 8 MEQ CAP PO SCH (08:48)
[2016-12-27] MEDS: QUETIAPINE 100 MG TAB PO SCH (08:48)
--- NOTE | 2016-12-27 10:00 | PN ---
Date/Time of Note Date/Time of Note DATE: 12/27/16 TIME: 09:58 Assessment/Plan VTE Prophylaxis VTE Prophylaxis Intervention: SCD's Lines/Catheters [facility] (from [facility]): Peripheral IV Urinary Cath still in place: No Assessment/Plan Problems: (1) E. coli UTI (urinary tract infection) Status: Acute Comment: Resolving nicely. From this perspective she can be treated as an outpatient. (2) Iron deficiency anemia Status: Chronic Comment: Receiving parenteral replacement and expect good recovery Qualifiers: Iron deficiency anemia type: unspecified iron deficiency Qualified Code: D50.9 - Iron deficiency anemia, unspecified iron deficiency anemia type (3) Obesity (BMI 30-39.9) Status: Chronic Comment: Noted. Calorie restriction diet (4) Hiatal hernia Status: Chronic Comment: Noted. Head of bed elevated which is alleviating symptoms (5) Organic brain syndrome Status: Chronic Comment: Stable and fortunately nonreversible Subjective 24 Hr Interval Summary Free Text/Dictation Patient acknowledges but is does not offer response to questions and submitted in any fashion Exam/Review of Systems Vital Signs Vitals Vital Signs Date Time Temp Pulse Resp B/P Pulse Ox O2 Delivery O2 Flow Rate FiO2 12/27/16 08:11 98.1 75 20 119/55 97 Intake and Output 12/26/16 12/26/16 12/27/16 15:00 23:00 07:00 Intake Total 1250 ml 885 ml Balance 1250 ml 885 ml Exam Constitutional: alert Neck: non-tender, supple Respiratory: clear to auscultation, normal air movement Cardiovascular: regular rate and rhythm Gastrointestinal: nl liver, spleen, non-tender, soft Results Result Diagram: 12/26/16 1128 12/26/16 1128 Results 24 hrs Laboratory Tests Test 12/26/16 11:28 White Blood Count 5.6 Red Blood Count 4.28 Hemoglobin 9.7 L Hematocrit 32.2 L Mean Corpuscular Volume 75.2 L Mean Corpuscular Hemoglobin 22.7 L Mean Corpuscular Hemoglobin Concent 30.1 L Red Cell Distribution Width 19.7 H Platelet Count 318 Mean Platelet Volume 8.5 Neutrophils % 60.6 Lymphocytes % 24.7 Monocytes % 7.0 Eosinophils % 6.8 Basophils % 0.4 Nucleated Red Blood Cells % 0.0 Neutrophils # 3.4 Lymphocytes # 1.4 Monocytes # 0.4 Eosinophils # 0.4 Basophils # 0.0 Nucleated Red Blood Cells # 0.0 Sodium Level 142 Potassium Level 4.3 Chloride Level 107 Carbon Dioxide Level 24 Anion Gap 15 Blood Urea Nitrogen 10 Creatinine 0.68 Glucose Level 90 Calcium Level 8.9 Medications Medications Current Medications Sodium Chloride 1,000 ml @ 70 mls/hr [id number] IV Last administered on 20:32; Admin Dose 70 MLS/HR; Start 12/23/16 at 05:23 Ceftriaxone Sodium (Rocephin) 50 ml @ 100 mls/hr Q24H IVPB Last administered on 12/27/16 02:27; Admin Dose 100 MLS/HR; Start 12/24/16 at 03:00 Cholecalciferol (Vitamin D) 2,000 unit DAILY PO Last administered on 12/27/16 08:48; Admin Dose 2,000 UNIT; Start 12/23/16 at 09:00 Mirtazapine (Remeron) 15 mg HS PO Last administered on 12/26/16 20:31; Admin Dose 15 MG; Start 12/23/16 at 21:00 Quetiapine Fumarate (Seroquel) 100 mg BID PO Last administered on 12/27/16 08: 48; Admin Dose 100 MG; Start 12/23/16 at 09:00 Polyethylene Glycol (Miralax) 17 gm DAILY PO Last administered on 12/27/16 08: 48; Admin Dose 17 GM; Start 12/23/16 at 17:30 Potassium Chloride (Micro-K) 8 meq DAILY PO Last administered on 12/27/16 08: 48; Admin Dose 8 MEQ; Start 12/23/16 at 23:00 Acetaminophen (Tylenol Tab) 650 mg Q4H PRN PO PAIN AND OR ELEVATED TEMP Last administered on 12/25/16 13:43; Admin Dose 650 MG; Start 12/25/16 at 13:30 Acetaminophen/ Hydrocodone Bitart 1 tab 1 tab Q4H PRN GTB pain Last administered on 12/25/16 21:18; Admin Dose 1 TAB; Start 12/25/16 at 15:00 Ferric Sodium Gluconate Complex/ Sodium Chloride (Ferrlecit/NS) 110 ml @ 100 mls/hr Q24H IVPB Last administered on 12/26/16 15:51; Admin Dose 100 MLS/HR; Start 12/26/16 at 15:30; Stop 12/28/16 at 16:35 TAMIKO CLEARY MD Dec 27, 2016 10:00
--- NOTE | 2016-12-27 13:21 | PDOCDIS ---
Discharge Instructions DIAGNOSIS Discharge Diagnosis E. coli UTI; organic brain syndrome; iron deficiency anemia; hiatal hernia CONDITION Patient Condition: Fair HOME CARE INSTRUCTIONS: Special Diet: mechanical soft, low sodium diet ACTIVITY: Activity Restrictions: Do not Drive Do not operate Machinery Do not operate Power Tool FOLLOW UP/APPOINTMENTS Follow-up Plan Home with home health; follow-up with primary care physician 2 week SCHOOL/WORK RELEASE May return to School/Work with: With Restrictions TAMIKO CLEARY MD Dec 27, 2016 13:21
--- NOTE | 2016-12-27 13:25 | DS ---
Date/Time of Note Date/Time of Note DATE: 12/27/16 TIME: 13:23 Discharge Summary Admission/Discharge Info Admit Date/Time Dec 23, 2016 at 15:52 Discharge Date/Time December 27, 2016 Discharge Diagnosis E. coli UTI; organic brain syndrome; iron deficiency anemia; hiatal hernia Patient Condition: Fair Consults Urology-Dr. Contreras Procedures Abdominal pelvic CT scan Hx of Present Illness 81-year-old female who is unable to give me any history secondary to chronic dementia as well as language barrier, was brought in by her daughter because of history of blood in her urinary diapers, exact duration unknown. Preliminary workup consistent with his significant urinary tract infection. Patient admitted for treatment as well as further workup as well as possible urology review. Hospital Course 1. Sepsis secondary to underlying urinary tract infection. Continue antimicrobials. No evidence of septic shock. 2. Gross hematuria. Most probably secondary to underlying UTI. Neurology following the patient. 3. Microcytic, hypochromic anemia. Pending iron panel. Will transfuse as needed. 4. Dementia. Continue frequent reorientation. 5. History of DVT. On a factor Xa inhibitors. This is on hold because of underlying anemia and gross hematuria. Repeat ultrasound of the bilateral lower extremities ordered. However, the patient refusing this. 6. Fluids, electrolytes, and nutrition. Regular diet. 7. DVT prophylaxis. Contraindicated. 8. Gastrointestinal prophylaxis. Proton pump inhibitors. 9. Plan. Continue antimicrobials. Await hematuria to be cleared. Case discussed with . 81-year-old woman who presented with hematuria due to E. coli UTI. Please note she was anticoagulated using Xarelto. Her hematuria cleared rapidly with antibiotics and was opted to resume her Xarelto. She is now stable and improved condition. She will now be discharged back home with home health services. She has no known communicable diseases she is not hazard to herself or others her rehabilitation potential is fair. Home Meds Reported Medications Furosemide* (Lasix*) 20 Mg Tablet, 20 MG PO DAILY, TAB 12/24/16 Potassium Chloride* (Potassium Chloride*) 8 Meq Capsule.er, 8 MEQ PO DAILY, CAP 12/24/16 Quetiapine Fumarate* (Seroquel*) 100 Mg Tablet, 100 MG PO BID, #60 TAB 12/23/16 Calcium Carbonate/Vitamin D3 (Calcium 500 mg Chewable Tablet) 1 Each Tab.chew, 1 EACH PO, TAB.CHEW 12/23/16 Cholecalciferol (Vitamin D3) (VITAMIN D-3) 2,000 Unit Capsule, 2000 UNIT PO, CAP 12/23/16 Celecoxib* (Celebrex*) 100 Mg Capsule, 100 MG PO BID, CAP 12/23/16 Esomeprazole Mag Trihydrate (Nexium) 40 Mg Capsule.dr, 40 MG PO WITH BREAKFAST, #30 CAP 12/23/16 Mirtazapine* (Remeron*) 15 Mg Tablet, 15 MG PO HS, TAB 12/23/16 Rivaroxaban* (Xarelto*) 10 Mg Tablet, 10 MG PO QHS, TAB 12/23/16 Follow-up Plan Primary care doctor in 2 weeks Primary Care Provider Not On Staff Doctor Time spent on discharge: > 30 minutes TAMIKO CLEARY MD Dec 27, 2016 13:25
[2016-12-27 14:43] VITALS: BP 117/74; RESP 19
--- NOTE | 2016-12-27 15:42 | PN ---
Date/Time of Note Date/Time of Note DATE: 12/27/16 TIME: 15:35 Assessment/Plan VTE Prophylaxis VTE Prophylaxis Intervention: ambulation Lines/Catheters [facility] Peripheral IV Urinary Cath still in place: No Assessment/Plan Chief Complaint/Hosp Course Gross hematuria that has cleared, patient had E. coli urinary tract infection and responded well to the antibiotic Repeated urine culture was negative. Patient may be discharged from a urological standpoint Problems: Assessment/Plan Gross hematuria and urinary tract infection that both have been cleared, patient was on anticoagulation at the time of admission and that was stopped.Now that the infection is treated and the hematuria has cleared she may resume taking her Xarelto Subjective 24 Hr Interval Summary Subjective hx not possible: pt non-verbal Constitutional: disoriented, no complaints Eyes: no complaints ENT: no complaints Respiratory: no complaints Cardiovascular: no complaints Gastrointestinal: no complaints Musculoskeletal: no complaints Skin: no complaints Neurologic: confusion Endocrine: no complaints Psychological: confusion Exam/Review of Systems Vital Signs Vitals Vital Signs Date Time Temp Pulse Resp B/P Pulse Ox O2 Delivery O2 Flow Rate FiO2 12/27/16 14:43 97.2 50 19 117/74 97 Intake and Output 12/26/16 12/26/16 12/27/16 15:00 23:00 07:00 Intake Total 1250 ml 885 ml Balance 1250 ml 885 ml Exam Constitutional: non-verbal, No distress Psych: confusion, no complaints Head: atraumatic, normocephalic Eyes: nl conjunctiva ENMT: nl external ears & nose Neck: supple Respiratory: normal air movement Gastrointestinal: non-tender, soft Genitourinary - Female: No CVA tenderness Musculoskeletal: nl extremities to inspection Extremities: No edema, No palpable cord Skin: nl turgor Lymph: nl lymph nodes Results Result Diagram: 12/26/16 1128 12/26/16 1128 Medications Medications Current Medications Sodium Chloride 1,000 ml @ 70 mls/hr [id number] IV Last administered on 20:32; Admin Dose 70 MLS/HR; Start 12/23/16 at 05:23 Ceftriaxone Sodium (Rocephin) 50 ml @ 100 mls/hr Q24H IVPB Last administered on 12/27/16 02:27; Admin Dose 100 MLS/HR; Start 12/24/16 at 03:00 Cholecalciferol (Vitamin D) 2,000 unit DAILY PO Last administered on 12/27/16 08:48; Admin Dose 2,000 UNIT; Start 12/23/16 at 09:00 Mirtazapine (Remeron) 15 mg HS PO Last administered on 12/26/16 20:31; Admin Dose 15 MG; Start 12/23/16 at 21:00 Quetiapine Fumarate (Seroquel) 100 mg BID PO Last administered on 12/27/16 08: 48; Admin Dose 100 MG; Start 12/23/16 at 09:00 Polyethylene Glycol (Miralax) 17 gm DAILY PO Last administered on 12/27/16 08: 48; Admin Dose 17 GM; Start 12/23/16 at 17:30 Potassium Chloride (Micro-K) 8 meq DAILY PO Last administered on 12/27/16 08: 48; Admin Dose 8 MEQ; Start 12/23/16 at 23:00 Acetaminophen (Tylenol Tab) 650 mg Q4H PRN PO PAIN AND OR ELEVATED TEMP Last administered on 12/25/16 13:43; Admin Dose 650 MG; Start 12/25/16 at 13:30 Acetaminophen/ Hydrocodone Bitart 1 tab 1 tab Q4H PRN GTB pain Last administered on 12/25/16 21:18; Admin Dose 1 TAB; Start 12/25/16 at 15:00 Ferric Sodium Gluconate Complex/ Sodium Chloride (Ferrlecit/NS) 110 ml @ 100 mls/hr Q24H IVPB Last administered on 12/26/16 15:51; Admin Dose 100 MLS/HR; Start 12/26/16 at 15:30; Stop 12/28/16 at 16:35 ARIE PRESLEY MD Dec 27, 2016 15:41
== END 2016-12-27 17:17 | disposition home or self-care (01) | DRG 872 ==
LOC: E/R 23:45 → PP2 12-23 03:29 → OBSVTOIN 12-25 15:52
PROVIDERS: ADMIT Family Medicine; ATTEND Family Medicine
PROC: 30233N1 Transfusion of Nonautologous Red Blood Cells into Peripheral Vein, Percutaneous Approach (ICD-10-PCS; principal; 2016-12-24)
DX: A41.9 Sepsis, unspecified organism (principal); N39.0 Urinary tract infection, site not specified; F03.90 Unspecified dementia, unspecified severity, without behavioral disturbance, psychotic disturbance, mood disturbance, and anxiety; R31.0 Gross hematuria; F09 Unspecified mental disorder due to known physiological condition; E66.9 Obesity, unspecified; B96.20 Unspecified Escherichia coli [E. coli] as the cause of diseases classified elsewhere; D50.9 Iron deficiency anemia, unspecified; K44.9 Diaphragmatic hernia without obstruction or gangrene; K59.00 Constipation, unspecified; Z68.35 Body mass index [BMI] 35.0-35.9, adult; Z79.01 Long term (current) use of anticoagulants; Z74.01 Bed confinement status; Z87.81 Personal history of (healed) traumatic fracture; Z86.718 Personal history of other venous thrombosis and embolism
CPT/HCPCS: 36430; 74177; 80048; 80053; 80061; 81001; 82270; 82533; 82962; 83036; 83540; 83690; 83735; 83930; 84100; 84439; 84443; 85014; 85018; 85025; 85610; 85730; 86850; 86870; 86900; 86901; 86920; 87040; 87086; 92610; G0378; A4310; C9113; J0696; J1940; J2916; J7030; J7040; P9016; Q9967